=== PATIENT | male | born 1970 ===

== ENCOUNTER 2022-04-16 15:41 | Emergency (ER) | payer SELFPAY ==
[2022-04-16 15:54] VITALS: BP 128/70
--- NOTE | 2022-04-16 16:24 | XRay Report ---
CHEST 2 VIEWS INDICATION: sob. COMPARISON: None FINDINGS: SUPPORT DEVICES: None. HEART: Within normal limits. LUNGS/PLEURA: No acute air space or interstitial disease. No pneumothorax. ADDITIONAL FINDINGS: None. IMPRESSION: 1. No acute findings. Signer Name: Manny Terry MD Signed: 04/16/2022 4:20 PM Workstation Name: [id number]
== END 2022-04-16 18:37 | disposition left against medical advice (07) ==
LOC: ED 15:41
DX: R06.02 Shortness of breath (principal); Z53.21 Procedure and treatment not carried out due to patient leaving prior to being seen by health care provider
CPT/HCPCS: 71046